=== PATIENT | female | born 1960 | race Caucasian/White ===

== ENCOUNTER → 2016-12-04 | Outpatient (CLI) | payer OTHER ==
[~2016-12-04] MED LIST: SYN125
--- NOTE | 2016-12-04 15:59 | MAMMOGRAPHY REPORT ---
BILATERAL DIGITAL SCREENING MAMMOGRAM TOMOSYNTHESIS WITH CAD: 12/04/2016 CLINICAL HISTORY: Routine screening. Patient has no complaints. TECHNIQUE: Breast tomosynthesis in addition to standard 2D mammography was performed. Current study was also evaluated with a Computer Aided Detection (CAD) system. COMPARISON: Comparison is made to exams dated: 10/05/2015 mammogram, 10/02/2014 mammogram, 10/01/2013 m ammogram - [facility], 09/30/2012 mammogram, 05/09/2011 mammogram - [facility], and 12/27/2009 mammogram - [facility]. BREAST COMPOSITION: There are scattered areas of fibroglandular density in both breasts. FINDINGS: No suspicious mass, architectural distortion or cluster of new, suspicious microcalcificat ions is seen. IMPRESSION: ACR BI-RADS CATEGORY 1: NEGATIVE There is no mammographic evidence of malignancy. A 1 year screening mammogram is recommended. The pa tient will receive written notification of the results. Approximately 10% of breast cancers are not detected with mammography. A negative mammographic report should not delay biopsy if a clinically suggestive mass is present. Margo Ocampo M.D. ay/:12/04/2016 15:04:29 Cardiovascular Specialist: Ching ELDRIDGE(Esha)(M), [facility] letter sent: Normal 1/2 BI-RADS Code: ACR BI-RADS Category 1: Negative
== END | disposition home or self-care (01) ==
LOC: C.MAMM 10:28
PROVIDERS: ATTEND Family Medicine
DX: Z12.31 Encounter for screening mammogram for malignant neoplasm of breast (principal)

== ENCOUNTER 2023-08-07 09:05 | Observation (INO) ==
--- NOTE | 2023-06-27 15:48 | PAT Medication Instructions ---
Medication Instructions Date of Service June 27, 2023 Home Medications levothyroxine 137 mcg tablet (Levoxyl) 137 mcg PO 6XWK ascorbic acid (vitamin C) 500 mg tablet (Vitamin C) 500 mg PO 3XWK calcium carbonate 333 mg-magnesium oxide 133 mg-zinc sulf 5 mg tablet 1 tab PO 3XWK cholecalciferol (vitamin D3) 50 mcg (2,000 unit) capsule (Vitamin D3) 50 mcg PO 3XWK esomeprazole magnesium 20 mg capsule,delayed release (Nexium) 20 mg PO QAM glucosam 750 mg-chondroi 100 mg-hyalur 1.65 mg-CF borate 108 mg tablet (IPTEGO) 1 tab PO 3XWK levothyroxine 150 mcg tablet (Levoxyl) 150 mcg PO WK twqou-0z-hov-epa-fish oil 120 mg-180 mg-60 mg-1,200 mg capsule, DR (Fish Oil) 1 cap PO 3XWK psyllium husk 0.52 gram capsule 0.52 g PO 3XWK vitamin B complex 1 cap PO 3XWK vitamin E 200 unit capsule 200 unit PO 3XWK Continue as directed levothyroxine 137 mcg tablet (Levoxyl) 137 mcg PO 6XWK levothyroxine 150 mcg tablet (Levoxyl) 150 mcg PO WK STOP taking 2 weeks before surgery glucosam 750 mg-chondroi 100 mg-hyalur 1.65 mg-CF borate 108 mg tablet (IPTEGO) 1 tab PO 3XWK yijdk-9t-egs-epa-fish oil 120 mg-180 mg-60 mg-1,200 mg capsule, DR (Fish Oil) 1 cap PO 3XWK vitamin E 200 unit capsule 200 unit PO 3XWK DO NOT take the morning of surgery ascorbic acid (vitamin C) 500 mg tablet (Vitamin C) 500 mg PO 3XWK calcium carbonate 333 mg-magnesium oxide 133 mg-zinc sulf 5 mg tablet 1 tab PO 3XWK cholecalciferol (vitamin D3) 50 mcg (2,000 unit) capsule (Vitamin D3) 50 mcg PO 3XWK psyllium husk 0.52 gram capsule 0.52 g PO 3XWK vitamin B complex 1 cap PO 3XWK Take morning of surgery With a small sip of water, OTHERWISE NOTHING TO EAT OR DRINK AFTER MIDNIGHT: esomeprazole magnesium 20 mg capsule,delayed release (Nexium) 20 mg PO QAM Other Notes If you have any questions please call us at [phone] or [phone] or [phone] or [phone]
--- NOTE | 2023-06-27 15:50 | PAT Medication Instructions ---
Medication Instructions Date of Service June 27, 2023 Home Medications levothyroxine 137 mcg tablet (Levoxyl) 137 mcg PO 6XWK ascorbic acid (vitamin C) 500 mg tablet (Vitamin C) 500 mg PO 3XWK calcium carbonate 333 mg-magnesium oxide 133 mg-zinc sulf 5 mg tablet 1 tab PO 3XWK cholecalciferol (vitamin D3) 50 mcg (2,000 unit) capsule (Vitamin D3) 50 mcg PO 3XWK esomeprazole magnesium 20 mg capsule,delayed release (Nexium) 20 mg PO QAM glucosam 750 mg-chondroi 100 mg-hyalur 1.65 mg-CF borate 108 mg tablet (Tylr Mobile Free Joint [employer] - It's what's in store) 1 tab PO 3XWK levothyroxine 150 mcg tablet (Levoxyl) 150 mcg PO WK ikxoh-5e-mfy-epa-fish oil 120 mg-180 mg-60 mg-1,200 mg capsule, DR (Fish Oil) 1 cap PO 3XWK psyllium husk 0.52 gram capsule 0.52 g PO 3XWK vitamin B complex 1 cap PO 3XWK vitamin E 200 unit capsule 200 unit PO 3XWK Continue as directed levothyroxine 137 mcg tablet (Levoxyl) 137 mcg PO 6XWK levothyroxine 150 mcg tablet (Levoxyl) 150 mcg PO WK STOP taking 2 weeks before surgery (or as soon as possible if surgery is within 2 weeks) glucosam 750 mg-chondroi 100 mg-hyalur 1.65 mg-CF borate 108 mg tablet (Tylr Mobile Free Joint [place] - It's what's in store) 1 tab PO 3XWK celxv-4l-psx-epa-fish oil 120 mg-180 mg-60 mg-1,200 mg capsule, DR (Fish Oil) 1 cap PO 3XWK vitamin E 200 unit capsule 200 unit PO 3XWK DO NOT take the morning of surgery ascorbic acid (vitamin C) 500 mg tablet (Vitamin C) 500 mg PO 3XWK calcium carbonate 333 mg-magnesium oxide 133 mg-zinc sulf 5 mg tablet 1 tab PO 3XWK cholecalciferol (vitamin D3) 50 mcg (2,000 unit) capsule (Vitamin D3) 50 mcg PO 3XWK psyllium husk 0.52 gram capsule 0.52 g PO 3XWK vitamin B complex 1 cap PO 3XWK Take morning of surgery With a small sip of water, OTHERWISE NOTHING TO EAT OR DRINK AFTER MIDNIGHT: esomeprazole magnesium 20 mg capsule,delayed release (Nexium) 20 mg PO QAM Other Notes If you have any questions please call us at [phone] or [phone] or [phone] or [phone]
--- NOTE | 2023-07-02 09:20 | Anesthesiology Consultation ---
Date of Service July 02, 2023 Assessment & Plan (1) Encounter for pre-operative examination: - Outpatient joint assessment: Patient is currently scheduled for inpatient pathway. If re-evaluated and patient/surgeon requests outpatient pathway, patient is not recommended candidate for outpatient joint program from anesthesia standpoint. - Patient had questions regarding her echocardiogram and overall monitoring, we reviewed her testing today and I advised nothing additional is needed at this time prior to surgery, encouraged her to remain in communication and routine follow-up with PCP. Chart Review Chart Review: Acceptable Risk for Surgery and Patient seen in Pre Admission Testing Teaching & Discussion Pre-Anesthesia Teaching/Discussion Notes: Instructed NPO after midnight before surgery, except medications with 15 cc of water. Medication instructions provided according to the PAT guidelines. History Surgery Operation Date: 08/07/23 07:00 Proposed Procedures p Right Total Knee Arthroplasty - Rajan Whitehead MD Height/Weight Height: 5 ft 6 in Weight: 75.9 kg Allergies Allergy/AdvReac Type Severity Reaction Status Date / Time Penicillins Allergy Mild Rash Verified 06/27/23 14:29 Medications Home Medications Medication Instructions Recorded Confirmed Last Taken levothyroxine 137 mcg tablet 137 mcg PO 6XWK 03/16/22 06/27/23 Unknown (Levoxyl) ascorbic acid (vitamin C) 500 mg 500 mg PO 3XWK 06/27/23 06/27/23 Unknown tablet (Vitamin C) calcium carbonate 333 mg-magnesium 1 tab PO 3XWK 06/27/23 06/27/23 Unknown oxide 133 mg-zinc sulf 5 mg tablet cholecalciferol (vitamin D3) 50 50 mcg PO 3XWK 06/27/23 06/27/23 Unknown mcg (2,000 unit) capsule (Vitamin D3) esomeprazole magnesium 20 mg 20 mg PO QAM 06/27/23 06/27/23 Unknown capsule,delayed release (Nexium) glucosam 750 mg-chondroi 100 1 tab PO 3XWK 06/27/23 06/27/23 Unknown mg-hyalur 1.65 mg-CF borate 108 mg tablet (Move Free [employer]) levothyroxine 150 mcg tablet 150 mcg PO WK 06/27/23 06/27/23 Unknown (Levoxyl) aolnh-1e-hod-epa-fish oil 120 1 cap PO 3XWK 06/27/23 06/27/23 Unknown mg-180 mg-60 mg-1,200 mg capsule, DR (Fish Oil) psyllium husk 0.52 gram capsule 0.52 g PO 3XWK 06/27/23 06/27/23 Unknown vitamin B complex 1 cap PO 3XWK 06/27/23 06/27/23 Unknown vitamin E 200 unit capsule 200 unit PO 3XWK 06/27/23 06/27/23 Unknown Past Medical History Medical History (Updated 07/02/23 @ 09:51 by Darcie English PA-C) Amniotic fluid embolism hx during 2nd , 1st 1983--resolved, no current issues Cervical arthritis mild chronic pain and stiffness per pt-denies change or worsening Degenerative disc disease, lumbar chronic, pt denies change or worsening-reports stiffness is only symptom Enlargement of aortic root follows with PCP--had echo 06/13/23 @ [facility] monitoring Mandie's thyroiditis History of COVID-19 04/2022--mild symptoms, no symptoms now History of esophageal dilatation denies recurrence of symptoms, denies choking Osteoarthritis of lumbar spine chronic, pt denies change or worsening-reports stiffness is only symptom Schatzki's ring Sleep apnea mild-moderate sleep apnea-no device currently Patient denies h/o stroke, seizures, heart attack, DM, HTN, or blood transfusions. Exercise / Class Metabolic Activity II 4-5 Yardwork/Stairs/Walk up hill (denies chest discomfort or shortness of breath with 1 FOS) Past Family History Family History Other No family history of adverse response to anesthesia Past Surgical History Surgical History History of section x2 History of colonoscopy History of esophagogastroduodenoscopy (EGD) with dilation History of facial surgery left cheek bone/orbital fx after snowtubing accident--no hardware History of removal of cyst benign off right breast History of tooth extraction History of wisdom tooth extraction Past Anesthesia History No Hx of Anesthesia Complications and No Family Hx of Anesthesia Complications History of PONV No Hx of PONV and No Hx of Motion Sickness Social History Smoking Status: Never smoker Do You Dip or Chew Tobacco: No Hx Alcohol Use: Yes Alcohol type: beer and wine alcohol intake frequency: a few times a week Hx Substance Use: No substance use type: does not use Review of Systems Patient denies chest pain, shortness of breath, dyspnea on exertion, fever, chills, cough, wheezing, or palpitations. Physical Exam Vital Signs Vitals BP 138/80 P 74 TEMP 98.3 SP02 96% on RA RESP 18 Physical Patient resting comfortably in chair in no acute distress, alert and oriented, responding appropriately throughout visit Full cervical extension range of motion without pain TMD 3.5 finger breadths Mallampati Score 2 Dentition: intact, denies chipped or loose teeth, caps/crowns, implants or bridges Lungs: normal respiratory effort. Good air movement, clear throughout to auscultation, no adventitious breath sounds Cardiac: regular rate and rhythm, no murmurs noted Carotid arteries: negative bruit bilat Lab Results Anesthesia Preop Results Results Anesthesia Widget: WBC 4.21 K/ul (4.8-10.8) L 07/02/23 Hgb 14.3 g/dl (12.0-16.0) 07/02/23 Hct 42.6 % (37.0-47.0) 07/02/23 Plt 252 K/uL (130-400) 07/02/23 Na 138 mmol/L (136-145) 07/02/23 K 4.5 mmol/L (3.5-5.1) 07/02/23 Cl 104 mmol/L (98-107) 07/02/23 CO2 29 mmol/L (21-32) 07/02/23 BUN 15 mg/dl (6-23) 07/02/23 Creat 0.67 mg/dl (0.6-1.2) 07/02/23 Glucose Level 98 mg/dl (70-99(Fasting)) 07/02/23 PT 10.7 Seconds (9.0-12.0) 07/02/23 PTT 27 Seconds (21-31) 07/02/23 INR 1.0 (0.9-1.1) 07/02/23 Blood Type O Positive 07/02/23 Antibody Screen NEGATIVE 07/02/23 Testing Laboratory Results 06/15/23 UA: trace blood, negative Electrocardiogram Date: 07/02/23 NSR, rate [address] abnormality Chest X-Ray Date: 07/02/23 No acute chest disease. Echocardiogram Date: 06/13/23 EF 57% Normal LV wall motion No significant valvular disease Aortic root is mildly enlarged 3.9 cm Proximal ascending thoracic aorta mildly enlarged 3.9 cm Grade I diastolic dysfunction
--- NOTE | 2023-08-04 11:32 | History & Physical Report ---
Date of Service August 04, 2023 Assessment & Plan (1) Degenerative arthritis of knee, bilateral: 63-year-old female with advanced bilateral knee DJD right side greater than left. She has failed conservative measures. She is ready to have her right knee fixed. Plan: Will take her to the operating do right total knee replacement. The risks Mente this procedure explained to the patient include but not limited to DVT PE infection neurological injury vascular bleeding palm pain and limited range of motion incomplete relief of symptoms need for further surgery in the future and persistent pain. The patient understands and desires to proceed. Informed consent was obtained. As far as discharge plan she is planned to be discharged to home. She is going to use aspirin for DVT prophylaxis. She is going to use the energy PT and home health. History of Present Illness Chief Complaint: . Bilateral knee pain right side greater than left. Primary Care Provider: Rei Thao MD . Patient is a 63-year-old female who now presents for surgical treatment of her knees. Is got a long history of knee problems followed and treated by Dr. Lomax as well as Dr. Kyle in the past. She had multiple steroid shots as well as the Euflexxa injections which have helped intermittently but become less successful over time. The right knee bothers more than the left. The more she is up and onto more it hurts. She has difficulty going up and down steps. She did not like to proceed with right knee replacement. Allergies Allergy/AdvReac Type Severity Reaction Status Date / Time Penicillins Allergy Mild Rash Verified 06/27/23 14:29 Home Medications Medication Instructions Recorded Confirmed Type levothyroxine 137 mcg tablet 137 mcg PO 6XWK 03/16/22 06/27/23 History (Levoxyl) ascorbic acid (vitamin C) 500 mg 500 mg PO 3XWK 06/27/23 06/27/23 History tablet (Vitamin C) calcium carbonate 333 mg-magnesium 1 tab PO 3XWK 06/27/23 06/27/23 History oxide 133 mg-zinc sulf 5 mg tablet cholecalciferol (vitamin D3) 50 50 mcg PO 3XWK 06/27/23 06/27/23 History mcg (2,000 unit) capsule (Vitamin D3) esomeprazole magnesium 20 mg 20 mg PO QAM 06/27/23 06/27/23 History capsule,delayed release (Nexium) glucosam 750 mg-chondroi 100 1 tab PO 3XWK 06/27/23 06/27/23 History mg-hyalur 1.65 mg-CF borate 108 mg tablet (Move Free [employer]) levothyroxine 150 mcg tablet 150 mcg PO WK 06/27/23 06/27/23 History (Levoxyl) roqbb-2a-qca-epa-fish oil 120 1 cap PO 3XWK 06/27/23 06/27/23 History mg-180 mg-60 mg-1,200 mg capsule, DR (Fish Oil) psyllium husk 0.52 gram capsule 0.52 g PO 3XWK 06/27/23 06/27/23 History vitamin B complex 1 cap PO 3XWK 06/27/23 06/27/23 History vitamin E 200 unit capsule 200 unit PO 3XWK 06/27/23 06/27/23 History Past Med/Surg History Medical History Cervical arthritis mild chronic pain and stiffness per pt-denies change or worsening Degenerative disc disease, lumbar chronic, pt denies change or worsening-reports stiffness is only symptom Osteoarthritis of lumbar spine chronic, pt denies change or worsening-reports stiffness is only symptom Schatzki's ring History of esophageal dilatation denies recurrence of symptoms, denies choking Mandie's thyroiditis Amniotic fluid embolism hx during 2nd , 1st 1983--resolved, no current issues History of COVID-19 04/2022--mild symptoms, no symptoms now Sleep apnea mild-moderate sleep apnea-no device currently Enlargement of aortic root follows with PCP--had echo 06/13/23 @ [facility] monitoring Surgical History History of colonoscopy History of esophagogastroduodenoscopy (EGD) with dilation History of removal of cyst benign off right breast History of section x2 History of wisdom tooth extraction History of tooth extraction History of facial surgery left cheek bone/orbital fx after snowtubing accident--no hardware Family History Other No family history of adverse response to anesthesia Social History Smoking Status: Never smoker Second Hand Exposure: No; Do You Dip or Chew Tobacco: No; Hx Alcohol Use: Yes Alcohol type: beer and wine Hx Substance Use: No Preferred Language: Lithuanian Communication Ability: Effective Clinical Resource Director Required: No Beliefs That Will Affect Care: None Current Living Situation: Spouse Feels Safe at Home: Yes Assistive Devices: Glasses Review of Systems All systems reviewed & are unremarkable except as noted in HPI & below. Physical Exam . Physical examination reveals a pleasant middle-aged female. Looks in reasonably good health. Examination of both knees reveals patient walks with with a bit of an antalgic gait. Is got varus alignment to both knees. Examination the right knee reveals varus alignment. She is tender with medial joint line. Small knee effusion. She has a varus thrust with weightbearing. Range of motion is 5-1 15. No instability. No pain with hip motion. Examination left knee reveals a similar varus deformity. She is tender with medial joint lines. Small knee effusion. Range of motion 5-1 25. No instability. Constitutional WD/WN, vitals as above Respiratory normal respiratory effort, lungs clear to auscultation Cardiovascular RRR, no murmur, no edema Gastrointestinal (Abdomen) normal bowel sounds, soft, nontender, no hepatosplenomegaly Results & Data Results & Data Laboratory Results . Diagnostic Findings . X-rays of the right knee reveal advanced right knee DJD. She has complete loss of medial joint space. She has subchondral sclerosis. Osteophytes primarily medially. She is pretty similar but less severe changes on the left side. PG Care Time/CCT Total # of Minutes Spent Total Time Spent with Patient: Total time spent is greater than 50% in coordination of care (as documented) at patient's floor/unit and/or counseling patient: Coding Level of Care Code None Diagnoses Degenerative arthritis of knee, bilateral M17.0
[~2023-08-07 09:05] MED LIST changes: +BUPIVACAINE 0.25% PF 30 ML VIAL ONE; +BUPIVACAINE 0.5 % 5 MG/1 ML PF 10ML VIAL ONE; -SYN125
[2023-08-07] MEDS ORDERED: ONDANSETRON INJ 2 MG/ML 2 ML VIAL IV PRN ×2 (09:21→13:48)
[2023-08-07] MEDS ORDERED: ePHEDrine sulfate 50 MG/ML AMP IV PRN (09:21)
[2023-08-07] MEDS ORDERED: fentaNYL citrate PF 100 MCG/2 ML VIAL IV PRN (09:21)
[2023-08-07] MEDS ORDERED: PROMETHAZINE HCL 6.25 MG in SODIUM CHLORIDE 0.9% 50 ML IV PRN (09:21)
[2023-08-07] MEDS ORDERED: ATROPINE SULFATE 0.1 MG/ML 10ML SYR IV PRN (09:21)
[2023-08-07] MEDS ORDERED: PROPOFOL IV EMULSION 10 MG/ML 20 ML VIAL IV ONE ×5 (09:55→12:19)
[2023-08-07] MEDS ORDERED: MIDAZOLAM HCL 1 MG/ML 2ML VIAL ONE ×2 (09:55→11:12)
[2023-08-07] MEDS ORDERED: LIDOCAINE 2% 2 ML VIAL/AMP(20MG/ML) INFIL ONE (09:57)
[2023-08-07] MEDS: LR 500ML BOLUS, THEN 15ML/HR IV SCH (10:00)
[2023-08-07] MEDS: ACETAMINOPHEN 500 MG TAB PO SCH ×2 (10:14→20:22)
[2023-08-07] MEDS: CeleBREX 200 MG CAP PO SCH (10:14)
[2023-08-07] MEDS: LR 60ML/HR IV SCH (10:15)
[2023-08-07] MEDS: Scopolamine 1 MG TDSY TD SCH (10:15)
[2023-08-07] MEDS: METOCLOPRAMIDE HCL 10 MG TABLET PO SCH (10:15)
[2023-08-07] MEDS: FAMOTIDINE 20 MG TAB PO SCH (10:16)
[2023-08-07] MEDS: dexAMETHasone**PF** 10 MG/ML VIAL IV SCH (10:17)
--- NOTE | 2023-08-07 10:46 | History & Physical Bridge Note ---
Date of Service August 07, 2023 History & Physical Bridge Note I have examined the patient, reviewed the History & Physical and in the interval since the performance of the History & Physical I have noted the following changes of clinical significance: no changes noted
[2023-08-07] MEDS: ceFAZolin 2000MG 2,000 MG/15 ML SYR IV SCH (11:04)
[2023-08-07] MEDS: ROPIV 0.5% 246mg, Ketorolac 30mg, EPINEPHrine 0.5mg in NSS INFIL SCH (11:38)
[2023-08-07] MEDS: TRANEXAMIC ACID 1,000 MG **IV Intra-op IV SCH (11:51)
--- NOTE | 2023-08-07 12:46 | Operative Report ---
PG Post Operative Report Pre & Post Diagnosis Operation Date: 08/07/23 10:40 Pre-Op Diagnosis: Right Knee Degenerative Joint Disease Post-Op Diagnosis: Right Knee Degenerative Joint Disease I identified the patient and participated in the time-out.: Yes Procedure Operation Date: 08/07/23 10:40 Actual Procedures p Right Total Knee Arthroplasty(Right) - Rajan Whitehead MD Surgeon Rajan Whitehead MD [employer] Manager Christopher Sidhu PA-C Estimated Blood Loss 50 Findings Consistent with Post-Op Diagnosis Specimens Right knee sent for pathology. Anesthesia Type Spinal MAC Complications none Disposition Accompanied Patient To Recovery: No Indications Patient is 63-year-old female with a long history of bilateral knee pain discomfort is gradually gotten worse over time patient been to extensive conservative treatments became less successful over time. The right knee bothers more than the left. X-rays show severe right knee arthritis. She like to proceed with right total knee arthroplasty. Description of Procedure Operative implants consist of: 1 Biomet Vanguard size 67.5 right posterior stabilized femoral component. 2. Biomet size 67 tibial tray. 3. 12 mm post stabilized polyethylene insert. 4. 31 x 8 all poly patella. The patient was taken to the operating, identified, placed on the operating table in the supine position but all contact areas were appropriately padded. I V antibiotics tried by anesthesia team. A spinal anesthetic and abductor canal block had been applied and holding area. A Carlos catheter was placed in sterile fashion. Right Tetrick was then placed. The right lower extremities then prepped and draped in usual sterile fashion. The right leg was elevated exsanguinated with use of an Esmarch and a turn was placed at 300 mmHg. An anterior approach to the right knee was then performed to longitudinal incision centered over the patella. Sharp dissection was carried through subcutaneous tissue down the extensor mechanism. A medial parapatellar arthrotomy incision was made. Some subperiosteal dissection was carried out medially. The fat pad was resected from Neath patella tendon. The lateral patellofemoral ligament was released. Patella subluxated laterally and the knee was flexed. The osteophytes taken off distal femur. The ACL and PCL were then released from the distal femur and the tibia subluxated anteriorly. The external treatment line jig was then placed on the anterior face of the tibia and adjusted 14 mm medially. Proximal tibial cut was made remove about a millimeter bone for the most deficient aspect the medial tibial plateau. This did take a fairly large piece off laterally. The tibia sized to a size 67. Attention drawn the femur. The distal femur was then with a sharp drill. Intramedullary canal was suction. A right 5 degree valgus cutting guide was placed. The distal femoral cutting block was pinned in place. This femoral cut was made take an additional 3 mm of bone off distal femur. The femur was then sized to a size 67.5. The AP cutting block was pinned parallel to the epicondylar axis which was 3 degrees of external rotation. The anterior cut, anterior chamfer, posterior cut, posterior chamfer cuts were made. The box cutting guide was placed in the just slight lateral and the box cut was made. The knee was flexed. The remnants of the medial and lateral menisci were excised. The osteophytes taken off the posterior aspect the femur. A trial femoral component was placed through the tibial tray was pinned Jannette external rotation and the drill and stem punch used. Defect in proximal tibia for the tibial tray. The knee was then trialed and the 12 mm insert fit most appropriately. Attention drawn the patella. The patella was cleaned of all soft tissues. Patella thickness measured 20 mm in thickness was cut down to 13. Was sized to a size 31 patella. The lug holes were drilled for 31 patella. The lateral osteophyte was removed. Patella button was placed. Knee was taken through range of motion patella tracked nicely with no thumbs test. Attention drawn to placing the permanent components. All trial components were removed. Bone plug was placed in the distal femur limit blood loss. A double batch Palacos G cement was mixed. A Biomet Vanguard size 67.5 right Po stabilized femoral component, size 67 tibial tray, a 12 mm post stabilized polyethylene insert, and a 31 x 8 all poly patella then cemented in place. Knee was brought out into full extension till cement hardened. Final cement check was then performed. The pericapsular tissues were injected with total of 100 cc of joint mixed. The patient did receive 1 g tranexamic acid. The tourniquet was then let down for final turn time 50 minutes. Hemostasis assured use electrocautery. The extensor Meclomen then closed with combination 1 PDS suture #1 Vicryl suture in a [id number] fashion. Extensor Meclomen checked found to be intact and subcutaneous tissue then closed with 2 Dexon salas ture in a buried interrupted fashion skin was closed skin stiven. Leg was then cleaned and dried and sterile dressing was Xeroform, 4 fours, sterile cast padding, Ankit bandage were applied. Patient then transferred to the recovery room in stable condition. Patient tolerated procedure well and there are no complications. I attest to the content of the Intraoperative Record and any orders documented therein. Any exceptions are noted below.
--- NOTE | 2023-08-07 13:05 | XRay Report ---
XR knee RT 1 or 2V routine CLINICAL HISTORY: Surgical Post Op TECHNIQUE: 2 views of the right knee were obtained. Comparison: Comparison is made to leg length radiographs 12/27/2020 FINDINGS: Patient is status post total knee arthroplasty with expected postsurgical changes including soft tiss ue swelling and subcutaneous emphysema. No periarticular lucency or hardware fracture is seen. IMPRESSION: Expected postoperative appearance status post placement of total knee arthroplasty. ACT 112: Negative or not required by law. Electronically signed by: Brian Mota M.D. 08/07/2023 1:03 PM
--- NOTE | 2023-08-07 13:32 | Anesthesiology Progress Note ---
Date of Service August 07, 2023 Anesthesia Post Procedure Vital Signs Vital Signs: Temp Pulse Pulse Resp BP Pulse Ox O2 Del Method 08/07/23 13:22 36.3 C L 75 18 123/83 98 Room Air 08/07/23 13:10 36.4 C L 82 16 118/71 97 Room Air 08/07/23 13:00 81 16 118/74 97 Room Air 08/07/23 12:50 82 17 117/68 97 Oxymask 08/07/23 12:40 36.3 C L 89 18 100/59 L 98 Oxymask 08/07/23 09:45 36.9 C 93 H 18 151/96 H 98 Room Air O2 Flow Rate 08/07/23 13:22 08/07/23 13:10 08/07/23 13:00 08/07/23 12:50 5 08/07/23 12:40 5 08/07/23 09:45 Transfer of Care Handoff Completed per policy Notes Mental Status: alert / awake / arousable and participated in evaluation Patient Amnestic to Procedure: Yes Nausea / Vomiting: adequately controlled Pain: adequately controlled Airway Patency, RR, SpO2: stable & adequate BP & HR: stable & adequate Hydration State: stable & adequate Neuraxial Anesthesia: was administered and sensory block is resolving Anesthetic Complications: no major complications apparent and Pt Satisfied with anesthetic care
--- OUTSIDE RECORDS SUMMARY | 2023-08-07 13:41 | External Medical Summary | Summary of Care ---
Author Name Unknown Organization [facility] Address [address] [place] [address] Phone [phone] Care Team Providers Care Beam House Inspector Name Role Phone Darius Garcia MD Primary Care Provider [phone] Reason for Visit * Reason Comments Medication Refill Encounter Details Date Type Department Care Team (Late st Contact Info) Description 07/27/2023 Refill Family Practice [facility] [address] [place] [address] Rei Thao III, MD [address] [place] [address] Allergies Active Allergy Reactions Criticality Noted Date Comments Penicillins Rash 02/22/2001 documented as of this encounter (statuses as of 07/27/2023) Medications Medication Sig Dispensed Refills Start Date End Date Status CALCIUM CARBONATE-VITAMIN D 500-500 MG-UNIT PO CHEW also contains magnesium, takes 1-2 tablest daily 0 Active Famciclovir (FAMVIR) 125 MG TABSIndications:Herp es simplex virus infection one tab twice daily 30 Tab 5 01/29/2018 Active Additional Information Patient not taking.Reported on 06/18/2023 naproxen (NAPROSYN) 500 MG TabletIndications:Pl kristine fasciitis, right,Primary osteoarthritis of right hip,Primary osteoarthritis of both knees Take 1 Tab by mouth 2 times a day as needed for Pain. With food 40 Tab 1 01/28/2019 Active Additional Information Patient not taking.Reported on 06/18/2023 valACYclovir (VALTREX) 1000 MG TabletIndications:He rpes simplex virus infection Two pills by mouth every 12 hours for one day for cold sores 12 Tab 3 06/17/2019 Active Additional Information Patient not taking.Reported on 06/18/2023 Ciclopirox 8 % External SolutionIndications: Onychomycosis of left great toe Apply over nail and surrounding skin. Apply daily over previous coat. After seven (7) days, may remove with alcohol and continue cycle. 6.6 mL 4 02/11/2021 Active Additional Information Patient not taking.Reported on 06/18/2023 Albuterol Sulfate HFA 108 (90 Base) MCG/ACT Inhalation Aerosol Solution INHALE 2 PUFFS BY MOUTH EVERY 4 TO 6 HOURS NEEDED 8.5 g 3 07/13/2022 Active Additional Information Patient not taking.Reported on 06/18/2023 Esomeprazole Magnesium 20 MG Oral Capsule Delayed Release (NexIUM) Take 1 Capsule by mouth daily before breakfast 30 Capsule 1 01/05/2023 Active Additional Information Patient taking differently: 20 mg Oral PRN, Take 1 Capsule by mouth daily before breakfast, Reported on 06/18/2023 Ventolin HFA 108 (90 Base) MCG/ACT Inhalation Aerosol Solution Inhale 2 Puffs by mouth every 4 hours as needed for Congestion, Shortness of Breath or Wheezing. 18 g 1 01/18/2023 Active Additional Information Patient not taking.Reported on 06/18/2023 Levothyroxine Sodium 150 MCG Oral Tablet (Levoxyl) Take 1 Tablet by mouth in the morning. (at least 30 min prior to breakfast or other meds). 90 Tablet 11 04/12/2023 Active Additional Information Patient taking differently:150 mcg Oral Daily(AM),Takes 6 days a week, Reported on 06/18/2023 Acyclovir 200 MG Oral Capsule (Zovirax)Indications :Herpes simplex virus infection TAKE ONE CAPSULE BY MOUTH EVERY 4 HOURS WHILE AWAKE 150 Capsule 0 05/02/2023 Active Additional Information Patient not taking.Reported on 06/18/2023 Maxitrol 3.5-16051-0.1 Ophthalmic Ointment (Neomycin-Polymyxin- Dexameth) apply a small amount into right eye 4 times per day for 5 days 3.5 g 0 05/15/2023 Active Additional Information Patient not taking.Reported on 06/18/2023 Levothyroxine Sodium 137 MCG Oral Tablet Take 1 Tablet by mouth daily first thing in the morning. Takes 1 day weekly-- SUNDAYS 0 Active Vitamin E 45 MG (100 UNIT) Oral Capsule Take 2 Capsules by mouth. Takes 3 times weekly 0 Active Vitamin D3 50 MCG (2000 UT) Oral Capsule Take 1 Capsule by mouth in the morning. 0 Active Levothyroxine Sodium 137 MCG Oral Tablet (Levoxyl) TAKE 1 TABLET BY MOUTH DAILY. 90 Tablet 1 07/27/2023 Active documented as of this encounter (statuses as of 07/27/2023) Active Problems Problem Noted Date Diagnosed Date Aortic root dilatation 06/18/2023 Overweight (BMI 25.0-29.9) 01/16/2023 Gastroesophageal reflux disease without esophagi tis 01/04/2023 WALTER (obstructive sleep apnea) 03/19/2013 Overview: AHI 23 on 03/06/13 Acquired hypothyroidism documented as of this encounter (statuses as of 07/27/2023) Resolved Problems Problem Noted Date Diagnosed Date Resolved Date Upper respiratory tract infection 01/18/2023 07/23/2023 Degeneration of cervical intervertebral disc 3 01/16/2023 Neck pain 05/18/2011 07/02/2017 Postmenopausal status, age-related 11/23/2010 01/29/2018 Diaphragmatic hernia 01/11/2010 023 Esophageal stricture 01/11/2010 023 OSTEOARTHROS NOS-HAND 01/09/20062022 ADVANCE DIRECTIVE INFORMATION 04/18/2005 12/14/2017 Overview: Yes, Patient instructed to provide copy of advance directive for provider to review and to be scanned into Electronic Medical Record Reflux esophagitis 04/26/2004 RHEUMAT AORTIC STENOSIS 10/10 Thyroiditis 01/16/2023 documented as of this encounter (statuses as of 07/27/2023) Immunizations Name Administration Dates Next Due COVID-19 mRNA, LNP-s, No Pre serve, 2-Dose Series (Moderna) 08/28/2020,07/26/2020 COVID-19, mRNA, LNP-s, PF, B ooster, 100mcg/0.5mg (Moderna) 05/09/2021 H1N1 2009 Influenza, IM 07/02/2009 Influenza, Whole Virus 04/27/2003,05/20/2002, OPV - Polio Virus Vaccine (Oral) 07/12/1983 PPD 07/21/2008,11/30/1997 Seasonal Influenza, PF, 6 M & above, IM , (FluLaval or Fluzone) 04/10/2023,03/16/2022,04/18/2021,2019,04/14/2019,04/01/2018,04/02/2017 Seasonal Influenza, Quadriva lent, No Preserve, IM 04/14/2016,04/06/2015 Seasonal Influenza, Split, I IV3, With Preserve, Inj 02/24/2014,03/05/2013,03/26/2012,2010,03/14/2010,07/02/2009,05/05/2008,1 07/02/2005 TD, Preservative Free 01/29/2018 TDAP (age 11 and older)(Adacel) 11/26/2007 documented as of this encounter Social History Tobacco Use Types Packs/Day Years Used Date Smoking Tobacco: Never Smokeless Tobacco: Never Alcohol Use Standard Drinks/Week Comments Yes 1.7 (1 standard drink = 0.6 oz p ure alcohol) rare PHQ-2 Answer Date Recorded PHQ Adult Total Score 0 01/16/2023 Hunger Vital Sign Answer Date Recorded Worried About Running Out of Food in the Last Ye ar Never true 02/24/2019 Ran Out of Food in the Last Year Never true 02/24/2019 Sex and Gender Information Value Date Recorded Sex Assigned at Female 09/02/2018 1:43 PM EDT Gender Identity Female 09/02/2018 1:43 PM EDT Sexual Orientation Straight 09/02/2018 1: 43 PM EDT Job Start Date Occupation Industry Not on file Not on file Not on file documented as of this encounter Miscellaneous Notes * Telephone Encounter - Iban Ferreira DO - 07/27/2023 3:25 PM ESTSigned Prescriptions: Disp Refills Levothyroxine Sodium 137 MCG Oral Tablet (*90 Tab*1 Sig: TAKE 1 TABLET BY MOUTH DAILY.Authorizing Provider: IBAN FERREIRA documented in this encounter Plan of Treatment Upcoming Encounters Date Type Department Care Team (Late st Contact Info) Description 08/21/2023 10:40 AM EDT Office Visit [facility] [place] [address] [facility] [place] [address] Rei Thao III, MD 200 [facility] [place] [address] Scheduled Procedures Name Priority Associated Diagnoses Date/Ti me COLONOSCOPY FLEXIBLE PROXIMA L DIAGNOSTIC Recall History of colonic polyps Health Maintenance Due Date Last Done Comments Zoster Vaccines (1 of 2) 2009 COVID-19 Vaccine ( season) 2023 05/09/2021, 08/28/2020, 07/26/2020 Mammogram 12/22/2023 12/21/2022, 12/09, 12/11/2019, Additional history exists Depression Screening 01/17/2024 01/16/2023, 01/29/2018 (Discussed) TSH 07/11/2024 07/11/2023, 1106/2022, 11/03/2022, Additional history exists Lipid Panel 12/04/2025 12/04/2020, 12/09, 11/10/2010, Additional history exists COLONOSCOPY-EVERY 3 YRS AGES 18-100 02/19/2026 02/19/2023, 02/19/2023, 02/21/2017, Additional history exists Pap Smear 05/22/2026 05/22/2023, 02/10, 10/25/2017, Additional history exists Diabetes Screening 06/15/2026 06/15/2023, 0 10/05/2021, 12/04/2020, Additional history exists DTaP,Tdap,and Td Vaccines (3 - Td or Tdap) 01/30/2028 01/29/2018, 01/29/2018, 11/26/2007 Cervical Cancer Screening 05/22/2028 HPV/Co-Test 05/22/2028 05/22/2023 COLONOSCOPY-EVERY 5 YRS AGES 18-100 Discontinued 02/19/2023, 02/19/2023, 02/21/2017, Additional history exists Influenza Vaccine (FLU shot) Completed 04/10/2023, 03/16/2022, 04/18/2021, Additional history exists GARDASIL-HPV IMMUNIZATION SERIES Aged Out No longer eligible based on patient's age to complete this topic Hepatitis B Aged Out No longer eligi ble based on patient's age to complete this topic MENINGOCOCCAL (MENACTRA/MENVEO) Aged Out No longer eligible based on patient's age to complete this topic Pneumococcal Vaccine: Pediatrics (0 to 5 Years) and At-Risk Patients (6 to 64 Years) Aged Out No longer eligible based on patient's age to complete this topic documented as of this encounter Medical Devices Implanted Type Area Emergency Services Director Device Identifier Shelf Expiration Date Model / Serial / Lot Duraclip 16mm Xlg Repostn - [id number] Implanted:Qty: 1 on 02/19/2023 by Lewis Hogan MD at [facility] [id number] / / Description:placed on ascend ing colon polypectomy site documented as of this encounter Care Teams Beam House Inspector Relationship Specialty Start Date End Date Darius Garcia MD [address] [place] [address] PCP - General Family Medicine 01/16/23 documented as of this encounter
--- OUTSIDE RECORDS SUMMARY | 2023-08-07 13:41 | External Medical Summary | Summary of Care ---
Author Name Unknown Organization [facility] Address [address] [place] [address] Phone [phone] Care Team Providers Care Lens Blocker Name Role Phone Darius Garcia MD Primary Care Provider [phone] Encounter Details Date Type Department Care Team (Late st Contact Info) Description 07/28/2023 3:20 PM EST Telemedicine Family Practice [facility] [address] [facility] [place] [address] Darius Garcia MD [address] [facility] [address] Acquired hypothyroidism*; WALTER (obstructive sleep apnea); Aortic root dilatation (HCC); Gastroesophageal reflux disease without esophagitis; Overweight (BMI 25.0-29.9) Allergies Active Allergy Reactions Criticality Noted Date Comments Penicillins Rash 02/22/2001 documented as of this encounter (statuses as of 07/29/2023) Medications Medication Sig Dispensed Refills Start Date End Date Status CALCIUM CARBONATE-VITAMIN D 500-500 MG-UNIT PO CHEW also contains magnesium, takes 1-2 tablest daily 0 Active Esomeprazole Magnesium 20 MG Oral Capsule Delayed Release (NexIUM) Take 1 Capsule by mouth daily before breakfast 30 Capsule 1 01/05/2023 Active Additional Information Patient taking differently: 20 mg Oral PRN, Take 1 Capsule by mouth daily before breakfast, Reported on 06/18/2023 Vitamin E 45 MG (100 UNIT) Oral Capsule Take 2 Capsules by mouth. Takes 3 times weekly 0 Active Vitamin D3 50 MCG (2000 UT) Oral Capsule Take 1 Capsule by mouth in the morning. 0 Active Levothyroxine Sodium 137 MCG Oral Tablet (Levoxyl) Take 1 Tablet by mouth daily first thing in the morning. 90 Tablet 3 07/28/2023 Active Famciclovir (FAMVIR) 125 MG TABSIndications:Her pes simplex virus infection one tab twice daily 30 Tab 5 01/29/2018 07/28/19 24 [facility] naproxen (NAPROSYN) 500 MG TabletIndications:P lantar fasciitis, right,Primary osteoarthritis of right hip,Primary osteoarthritis of both knees Take 1 Tab by mouth 2 times a day as needed for Pain. With food 40 Tab 1 01/28/2019 07/28/19 24 [facility]u ed[facility] valACYclovir (VALTREX) 1000 MG TabletIndications:H erpes simplex virus infection Two pills by mouth every 12 hours for one day for cold sores 12 Tab 3 06/17/2019 07/28/19 24 Discontinu ed([facility] Ciclopirox 8 % External SolutionIndications :Onychomycosis of left great toe Apply over nail and surrounding skin. Apply daily over previous coat. After seven (7) days, may remove with alcohol and continue cycle. 6.6 mL 4 02/11/2021 07/28/19 24 [facility]continu ed[facility] Albuterol Sulfate HFA 108 (90 Base) MCG/ACT Inhalation Aerosol Solution INHALE 2 PUFFS BY MOUTH EVERY 4 TO 6 HOURS NEEDED 8.5 g 3 07/13/2022 07/28/19 24 Discontinu ed[facility] Ventolin HFA 108 (90 Base) MCG/ACT Inhalation Aerosol Solution Inhale 2 Puffs by mouth every 4 hours as needed for Congestion, Shortness of Breath or Wheezing. 18 g 1 01/18/2023 07/28/19 24 Discontinu ed([facility]) Levothyroxine Sodium 150 MCG Oral Tablet (Levoxyl) Take 1 Tablet by mouth in the morning. (at least 30 min prior to breakfast or other meds). 90 Tablet 11 04/12/2023 07/28/19 24 [facility]continu ed[facility] Acyclovir 200 MG Oral Capsule (Zovirax)Indication s:Herpes simplex virus infection TAKE ONE CAPSULE BY MOUTH EVERY 4 HOURS WHILE AWAKE 150 Capsule 0 05/02/2023 07/28/19 24 Discontinu ed([facility]) Maxitrol 3.5-98441-8.1 Ophthalmic Ointment (Neomycin-Polymyxin -Dexameth) apply a small amount into right eye 4 times per day for 5 days 3.5 g 0 05/15/2023 07/28/19 24 Discontinu ed([facility]) Levothyroxine Sodium 137 MCG Oral Tablet Take 1 Tablet by mouth daily first thing in the morning. Takes 1 day weekly-- SUNDAYS 0 07/28/19 24 Discontinu ed([facility]) Levothyroxine Sodium 137 MCG Oral Tablet (Levoxyl) TAKE 1 TABLET BY MOUTH DAILY. 90 Tablet 1 07/27/2023 07/28/19 24 Discontinu ed(Refill) documented as of this encounter (statuses as of 07/29/2023) Active Problems Problem Noted Date Diagnosed Date Aortic root dilatation 06/18/2023 Overweight (BMI 25.0-29.9) 01/16/2023 Gastroesophageal reflux disease without esophagi tis 01/04/2023 WALTER (obstructive sleep apnea) 03/19/2013 Overview: AHI 23 on 03/06/13 Acquired hypothyroidism documented as of this encounter (statuses as of 07/29/2023) Resolved Problems Problem Noted Date Diagnosed Date [...] into Electronic Medical Record Reflux esophagitis 04/26/2004 3 RHEUMAT AORTIC STENOSIS 10/10 Thyroiditis 01/16/2023 documented as of this encounter (statuses as of 07/29/2023) Immunizations Name Administration Dates Next Due COVID-19 [...] on file documented as of this encounter Progress Notes * Darius Garcia MD - 07/29/2023 10:41 AM EST Patient location: HOME. I was in a hospital or clinic location. After connecting through [employer],patient was verified with two unique identifiers. Patient (or authorized legal manufacturer's representative) was then informed that this was a Telemedicine visit and being conducted confidentially over secure lines. Methods to assure confidentiality were taken. Patient acknowledged consent and understanding of pr ivacy and security of the Telemedicine visit. The patient agreed to participate. SUBJECTIVE: Kari Rangel is a 63 year old female. No chief complaint on file. HPI: [facility] not [facility].We went through her list and I confirmed that no further follow up is presently needed for any of their findings. She has upcoming knee surgery. Patient Active Problem List Diagnosis Code Acquired hypothyroidism E03.9 WALTER (obstructive sleep apnea) G47.33 Gastroesophageal reflux disease without esophagitis K21.9 Overweight (BMI 25.0-29.9) E66.3 Aortic root dilatation (HCC) I77.810 Current Outpatient Medications Medication Sig Dispense Refill Levothyroxine Sodium 137 MCG Oral Tablet (Levoxyl) Take 1 Tablet by mouth daily first thing in the morning. 90 Tablet 3 CALCIUM CARBONATE-VITAMIN D 500-500 MG-UNIT PO CHEW also contains magnesium, takes 1-2 tablest daily Esomeprazole Magnesium 20 MG Oral Capsule Delayed Release (NexIUM) Take 1 Capsule by mouth daily before breakfast (Patient taking differently: Take 1 Capsule by mouth as needed. Take 1 Capsule by mouth daily before breakfast) 30 Capsule 1 Vitamin E 45 MG (100 UNIT) Oral Capsule Take 2 Capsules by mouth. Takes 3 times weekly Vitamin D3 50 MCG (2000 UT) Oral Capsule Take 1 Capsule by mouth in the morning. No current facility-administered medications for this visit. Allergy: Review of patient's allergies indicates: Allergen Reactions Penicillins Rash OBJECTIVE: LMP 08/12/2010 Gen:nad ASSESSMENT AND PLAN: (E03.9) Acquired hypothyroidism (primary encounter diagnosis) Plan: euthyroid (G47.33) WALTER (obstructive sleep apnea) Plan: stable (I77.810) Aortic root dilatation (HCC) Plan: serial echo (K21.9) Gastroesophageal reflux disease without esophagitis Plan: quiescent (E66.3) Overweight (BMI 25.0-29.9) Plan: diet/exercise Follow up as needed. No other complaints were offered at this time. Darius Garcia MD documented in this encounter Plan of Treatment Upcoming Encounters Date Type Department Care Team (Late st Contact Info) Description 08/21/2023 10:40 AM EDT Office Visit [facility] [address] [place] [address] Rei Thao III, MD [address] [facility] [place] [address] 09/19/2023 8:00 AM EDT Office Visit [facility] [address] [place] [address] Darius Garcia MD [address] [place] [address] Scheduled Procedures Name Priority Associated Diagnoses Date/Ti [...] this encounter Medical Devices Implanted Type Area Stamp Pad Maker Device Identifier Shelf Expiration Date Model / Serial / Lot Duraclip 16mm Xlg Repostn - [id number] Implanted:Qty: 1 on 02/19/2023 by Lewis Hogan MD at [facility] 07/27/2024 [id number] / / Description:placed on ascend ing colon polypectomy site documented as of this encounter Visit Diagnoses Diagnosis Acquired hypothyroidism- Primary Unspecified hypothyroidism WALTER (obstructive sleep apnea) Obstructive sleep apnea (adult) (pediatric) Aortic root dilatation (HCC) Thoracic aortic ectasia Gastroesophageal reflux disease without esophagitis Esophageal reflux Overweight (BMI 25.0-29.9) Overweight documented in this encounter Care Teams Lens Blocker Relationship Specialty Start Date End Date Darius Garcia MD [address] [facility] [place] [address] PCP - General Family Medicine 01/16/23 documented as of this encounter
--- OUTSIDE RECORDS SUMMARY | 2023-08-07 13:42 | External Medical Summary | Summary of Care ---
Author Name Unknown Organization [facility] Address [address] [place] [address] Phone [phone] Care Team Providers Care Mechanical Maintenance Supervisor Name Role Phone Darius Garcia MD Primary Care Provider [phone] Reason for Visit * Reason Comments Outpatient Testing Encounter Details Date Type Department Care Team (Late st Contact Info) Description 07/11/2023 1:50 PM EST Laboratory Laboratory, [facility] [address] [place] [id number] [facility] [address] [place] [address] Acquired hypothyroidism Allergies Active Allergy Reactions Criticality Noted Date Comments Penicillins Rash 02/22/2001 documented as of this encounter (statuses as of 07/11/2023) Medications Medication Sig Dispensed Refills Start Date [...] Information Patient not taking.Reported on 06/18/2023 Maxitrol 3.5-13853-1.1 Ophthalmic Ointment (Neomycin-Polymyxin- Dexameth) apply a small [...] by mouth in the morning. 0 Active documented as of this encounter (statuses as of 07/11/2023) Active Problems Problem Noted Date Diagnosed Date Aortic root dilatation 06/18/2023 Upper respiratory tract infection 01/18/2023 Overweight (BMI 25.0-29.9) 01/16/2023 Gastroesophageal reflux disease without esophagi tis 01/04/2023 WALTER (obstructive sleep apnea) 03/19/2013 Overview: AHI 23 on 03/06/13 Acquired hypothyroidism documented as of this encounter (statuses as of 07/11/2023) Resolved Problems Problem Noted Date Diagnosed Date Resolved Date Degeneration of cervical intervertebral disc 3 01/16/2023 [...] as of this encounter (statuses as of 07/11/2023) Immunizations Name Administration Dates Next Due COVID-19 [...] on file documented as of this encounter Plan of Treatment Upcoming Encounters Date Type Department Care Team (Late st Contact Info) Description 08/09/2023 8:20 AM EST Office Visit [facility] [address] [place] [address] Rei Thoa III, MD [address] [place] [address] Pending Results Name Type Priority Associated Diagnoses Date /Time TSH WITH FREE T4 IF INDICATED Lab Routine Acquired hypothyroidism 07/11/2023 1:55 PM EST Scheduled Procedures Name Priority Associated Diagnoses Date/Ti me COLONOSCOPY FLEXIBLE PROXIMA L DIAGNOSTIC Recall History of colonic polyps Health Maintenance Due Date Last Done Comments Zoster Vaccines (1 of 2) 2009 COVID-19 Vaccine ( season) 2023 05/09/2021, 08/28/2020, 07/26/2020 Mammogram 12/22/2023 12/21/2022, 12/09, 12/11/2019, Additional history exists Depression Screening 01/17/2024 01/16/2023, 01/29/2018 (Discussed) TSH 04/11/2024 04/11/2023, 10/10, 10/05/2021, Additional history exists Lipid Panel 12/04/2025 12/04/2020, [...] this encounter Medical Devices Implanted Type Area Film Sorter Device Identifier Shelf Expiration Date Model / Serial / Lot Duraclip 16mm Xlg Repostn - [id number] Implanted:Qty: 1 on 02/19/2023 by Lewis Hogan MD at ENDOSCOPY [facility] [address] [employer] [facility] 07/27/2024 [id number] / / Description:placed on ascend ing colon polypectomy site documented as of this encounter Visit Diagnoses Diagnosis Acquired hypothyroidism Unspecified hypothyroidism documented in this encounter Care Teams Mechanical Maintenance Supervisor Relationship Specialty Start Date End Date Darius Garcia MD [address] [facility] [place] [address] PCP - General Family Medicine 01/16/23 documented as of this encounter
--- OUTSIDE RECORDS SUMMARY | 2023-08-07 13:42 | External Medical Summary ---
Author Name Unknown Address Unknown Organization K01:LABORATORY [facility] - [address] [place] [address] Laboratory Report Ordering Provider Test Date Status RUSTAM RITCHIEGraham 07/11/2023 13:55:01 Final Observation Date Value Abnormality Reference (Units ) Status TSH 07/11/2023 13:55:01 0.64 0.27-4.20 (uIU/mL) Final Performing Location LABORATORY [facility] - [address] [place] [address]
[2023-08-07] MEDS ORDERED: NALOXONE HCL 0.4 MG/1 ML VIAL/CARP IV PRN (13:48)
[2023-08-07] MEDS ORDERED: bisacodyL 10 MG SUPP PR PRN (13:48)
[2023-08-07] MEDS ORDERED: MAGNESIUM HYDROXIDE SUSP 30 ML UDC PO PRN (13:48)
[2023-08-07] MEDS ORDERED: CALCIUM CARB MAG OX ZINC SULF PO SCH (13:48)
[2023-08-07] MEDS ORDERED: PSYLLIUM HUSK 0.52 GM PO SCH (13:48)
[2023-08-07] MEDS ORDERED: METOCLOPRAMIDE HCL INJ 5 MG/ML 2 ML VIAL IV PRN (13:48)
[2023-08-07] MEDS ORDERED: ALUMINUM/MAGNESIUM SUSP 30 ML UDC PO PRN (13:48)
[2023-08-07] MEDS ORDERED: HYDROmorphone INJ 0.5 MG/0.5 ML SYR IV PRN (13:48)
[2023-08-07] MEDS ORDERED: NON-FORMULARY MEDICATION (Glucosam-Chond-Hyalu-Cf Borate [Move Free Joint Health] 750 mg-1 PO SCH (13:48)
[2023-08-07] MEDS ORDERED: NON-FORMULARY MEDICATION (Amino Acids Capsule) PO SCH (14:00)
[2023-08-07] MEDS: SODIUM CHLORIDE 0.9% 1,000 ML IV SCH (14:16)
[2023-08-07] MEDS: KETOROLAC 30 MG/ML VIAL IV SCH (15:24)
[2023-08-07] MEDS: Scopolamine CHECK PATCH PLACEMENT SCH (16:02)
[2023-08-07] MEDS: ceFAZolin 1000MG 1,000 MG/7.5 ML SYR IV SCH (18:01)
[2023-08-07] MEDS: TRANEXAMIC ACID / 0.7% NACL 1,000 MG/100 ML BAG IV SCH (18:02)
[2023-08-07] MEDS: ASPIRIN 81 MG ECTAB PO SCH (20:21)
[2023-08-07] MEDS: DOCUSATE SODIUM 100 MG CAP PO SCH (20:21)
[2023-08-07] MEDS: SENNA 8.6 MG TAB PO SCH (20:22)
[2023-08-07] MEDS ORDERED: SENNA 8.6 MG TAB PO SCH (21:00)
[2023-08-08] MEDS: oxyCODONE HCL IR 5 MG TAB (IMMEDIATE RELEASE) PO PRN (00:11)
[2023-08-08] MEDS: LEVOTHYROXINE SODIUM 137 MCG TABLET PO SCH (05:35)
[2023-08-08 06:19] LABS: Hematocrit (blood only) 31.9 % (37.0-47.0); Hemoglobin 10.8 g/dl (12.0-16.0); Mean Corpuscular Hemoglobin 31.1 pg (25.0-34.0); Mean Corpuscular Hgb Conc 33.9 g/dL (32.0-36.0); Mean Corpuscular Volume 91.9 fL (80.0-100.0); Platelet Count 203 K/uL (130-400); RDW Coefficient of Variation 12.1 % (11.5-14.5); RDW Standard Deviation 40.5 fL (36.4-46.3); Red Blood Count 3.47 M/uL (4.20-5.40); White Blood Count 10.75 K/ul (4.8-10.8)
[2023-08-08 06:40] LABS: BUN Creatinine Ratio 19.4 (10-20); Calcium 8.7 mg/dl (8.6-10.3); Creatinine Clr Calc Pharmacy 87.2 ml/min; Est GFR (African American) 107.7 ml/min; Est GFR (Non-African American) 92.9 ml/min; Potassium 4.3 mmol/L (3.5-5.1)
[2023-08-08] MEDS: dexAMETHasone 10 MG in SYRINGE 0 ML IV SCH (08:26)
[2023-08-08] MEDS: VITAMIN B COMPLEX TAB PO SCH (09:26)
[2023-08-08] MEDS: CHOLECALCIFEROL 25 MCG (1000 UNITS) TAB PO SCH (09:26)
[2023-08-08] MEDS: MULTIVITAMIN TAB PO SCH (09:27)
[2023-08-08] MEDS: ASCORBIC ACID 500 MG TAB PO SCH (09:27)
[2023-08-08] MEDS: TOCOPHERYL, DL-ALPHA 100 UNITS 67 MG CAP PO SCH (09:27)
[2023-08-08] MEDS: OMEGA-3 (PURIFIED FISH OIL) 1 GM CAP PO SCH (09:27)
[2023-08-08] MEDS: PANTOprazole 40 MG TAB PO SCH (09:28)
--- NOTE | 2023-08-08 11:11 | Surgery Progress Note ---
Date of Service August 08, 2023 Assessment & Plan (1) Status post right knee replacement: Plan: 63-year-old female postop day 1 from right knee replacement doing well. Pain is controlled. She is neurologically intact. Plan: 1. DVT prophylaxis including thigh-high teds, SCDs, aspirin twice a day. 2. PT/OT. Weight-bear as tolerated. Right total knee protocol. 3. Pain control. Doing pretty well with current pain regimen. 4. Disposition plan is to discharge home with some home health if she does okay in therapy today. Admission and Anticipated Discharge Date Admission Date: August 07, 2023 Subjective 63-year-old female postop day 1 from right knee replacement. She is doing pretty well. Had a pretty good night. Pains been manageable. Therapy is going well. No chest pain or shortness of breath. Not feeling dizzy or lightheaded. She is hoping to go home today. Physical Exam Physical Exam: Physical exam shows a pleasant middle-age female. She is sitting up in her bedside with her legs dangling over the edge of her bed looks comfortable. He semination the right leg reveals dressing be clean dry and intact. She can dorsiflex and plantarflex her foot appropriately. She can do a pretty good straight leg raise. Respiratory: normal respiratory effort, lungs clear to auscultation Cardiovascular: RRR, no murmur, no edema Gastrointestinal (Abdomen): normal bowel sounds, soft, nontender, no hepatosplenomegaly Results & Data Vital Signs (Past 12 Hours) Vital Signs Temp Pulse Resp BP Pulse Ox O2 Del Method 08/08/23 07:42 36.8 C 64 18 141/87 H 98 Room Air 08/08/23 03:00 36.7 C 65 16 137/79 96 Room Air 08/07/23 23:42 36.7 C 68 18 109/65 96 Room Air Laboratory Results Hemoglobin is 10.8. Hematocrit is 31.9. Electrolytes are stable. PG Care Time/CCT Total # of Minutes Spent Total Time Spent with Patient: Total time spent is greater than 50% in coordination of care (as documented) at patient's floor/unit and/or counseling patient: Coding Level of Care Code 53809 Post Operative Follow-Up Diagnoses Status post right knee replacement Z96.651
--- NOTE | 2023-08-10 13:57 | Discharge Summary ---
Date of Service August 10, 2023 Discharge Data Procedures Performed Operation Date: 08/07/23 10:40 Actual Procedures p Right Total Knee Arthroplasty(Right) - Rajan Whitehead MD Hospital Course (1) Status post right knee replacement: This is a 63 year old patient admitted on 08/07/23 and underwent total knee arthroplasty. She tolerated the procedure well and there were no complications. Transferred to the PACU post op and later to the orthopedic floor for further care. She was given ancef for antibiotic prophylaxis. She was also given DELORES stockings, SCDs, and aspirin for DVT prophylaxis. Hemoglobin, hematocrit, and vital signs were monitored during her hospital stay and remained stable. Did not require any blood transfusions. There were no complications during her hospital stay. By post op day #1 the patient was tolerating a regular diet, pain was reasonably controlled with oral pain medicine, and she was participating in physical therapy. On post op day #1 the patient was discharged home and set up with home health care. She was given printed discharge instructions including prescriptions for extra strength tylenol, aspirin, cefadroxil, ketorolac, zofran, oxycodone, and senokot. Continue physical therapy, weight bearing as tolerated. Continue DELORES stockings. Follow up approximately 2 weeks post op or sooner if there are problems or concerns. Coding Level of Care Code None Diagnoses Status post right knee replacement Z96.651
== END 2023-08-08 11:17 | disposition home health service (06) ==
LOC: 3E 09:05 → ASU 09:05